=== PATIENT | female | born 1945 | race Caucasian/White ===

== ENCOUNTER 2022-04-10 11:17 | Emergency (ER) | payer MEDICARE ==
[2022-04-10] MEDS ORDERED: SODIUM CHLORIDE 0.9% 1,000 ML IV STA (11:34)
[2022-04-10] MEDS ORDERED: ACETAMINOPHEN TAB 500 MG TAB PO STA (11:44)
[2022-04-10 12:13] LABS: Basophils % (A) 1 %; Eosinophils # (A) 0.1 k/uL (0-0.7); Eosinophils % (A) 2 %; HCT 35.1 % (34.0-46.0); HGB 11.9 gm/dL (11.4-16.0); Lymphocytes # (A) 0.5 k/uL (1.0-4.8); Lymphocytes % (A) 8 %; MCH 27.9 pg (25.0-35.0); MCHC 33.9 g/dL (31.0-37.0); MCV 82.4 fL (80.0-100.0); Mean Platelet Volume 6.8; Monocytes # (A) 0.4 k/uL (0-1.0); Monocytes % (A) 6 %; Neutrophils # (A) 5.5 k/uL (1.3-7.7); Neutrophils % (A) 83 %; Platelet Count 231 k/uL (150-450); RBC 4.26 m/uL (3.80-5.40); WBC 6.6 k/uL (3.8-10.6)
--- NOTE | 2022-04-10 12:21 | ED ---
SOB HPI - General Chief Complaint: Shortness of Breath Stated Complaint: Covid+, SOB, fever Time Seen by Provider: 04/10/22 11:34 Source: patient Mode of arrival: ambulatory Limitations: no limitations - History of Present Illness Initial Comments: Patient is a 76-year-old female who presents to the emergency department for shortness of breath. Patient reports mild shortness of breath that began last night. She had 2 positive COVID-19 home tests. She reports dry cough, sore throat, and fever. No antipyretic use. No chest pain, nausea, vomiting. No history of tobacco use or COPD. - Related Data Previous Rx's Medication Instructions Recorded Benzocaine/Menthol [Cepacol Sore 1 each MM Q4-6H PRN #20 lozenge 04/10/22 Throat Lozenge] Allergies Allergy/AdvReac Type Severity Reaction Status Date / Time No Known Allergies Allergy Verified 04/10/22 11:32 Review of Systems ROS Statement: Those systems with pertinent positive or pertinent negative responses have been documented in the HPI. ROS Other: All systems not noted in ROS Statement are negative. Past Medical History Past Medical History: Renal Disease History of Any Multi-Drug Resistant Organisms: None Reported Past Surgical History: No Surgical Hx Reported Past Psychological History: No Psychological Hx Reported Smoking Status: Never smoker Past Alcohol Use History: Rare Past Drug Use History: None Reported General Exam Limitations: no limitations General appearance: alert, in no apparent distress Head exam: Present: atraumatic, normocephalic, normal inspection Eye exam: Present: normal appearance, PERRL, EOMI. Absent: scleral icterus, conjunctival injection, periorbital swelling ENT exam: Present: normal oropharynx Respiratory exam: Present: normal lung sounds bilaterally. Absent: respiratory distress, wheezes, rales, rhonchi, stridor Cardiovascular Exam: Present: regular rate, normal rhythm, normal heart sounds. Absent: systolic murmur, diastolic murmur, rubs, gallop, clicks GI/Abdominal exam: Present: soft, normal bowel sounds. Absent: distended, tenderness, guarding, rebound, rigid Extremities exam: Present: normal capillary refill. Absent: pedal edema Neurological exam: Present: alert, oriented X3, CN II-XII intact Psychiatric exam: Present: normal affect, normal mood Course Vital Signs 04/10/22 11:28 Temperature 100 F H Pulse Rate 100 Respiratory 18 Rate Blood Pressure 160/86 O2 Sat by Pulse 96 Oximetry Medical Decision Making - Medical Decision Making Was pt. sent in by a medical professional or institution (, JEROME, NURSE PRACTITIONER MANAGER, urgent care, hospital, or long-term...) When possible be specific @ -[No] Did you speak to anyone other than the patient for history (EMS, parent, family, police, friend...)? What history was obtained from this source @ -[No] Did you review nursing and triage notes (agree or disagree)? Why? @ -[I reviewed and agree with nursing and triage notes] Were old charts reviewed (outside hosp., previous admission, EMS record, old EKG, old radiological studies, urgent care reports/EKG's, long-term records)? Report findings @ -[No old charts were reviewed] Differential Diagnosis (chest pain, altered mental status, abdominal pain women, abdominal pain men, vaginal bleeding, weakness, fever, dyspnea, syncope, headache, dizziness, GI bleed, back pain, seizure, CVA, palpatations, mental health)? @ -COVID-19, pneumonia, acute bronchitis EKG interpreted by me (3pts min.). @ -EKG shows sinus rhythm with no new ST segment or T-wave changes. Ventr icular rate 79, TX interval 174, QRS duration 87, QTC 397 X-rays interpreted by me (1pt min.). @ -[None done] CT interpreted by me (1pt min.). @ -[None done] U/S interpreted by me (1pt. min.). @ -[None done] What testing was considered but not performed or refused? (CT, X-rays, U/S, labs)? Why? @ -[None] What meds were considered but not given or refused? Why? @ -[None] Did you discuss the management of the patient with other professionals (professionals i.e. , JEROME, NURSE PRACTITIONER MANAGER, lab, RT, psych nurse, social media marketing analyst, core extruder, teacher, gunnery/ordnance officer, senior case manager)? Give summary @ -[No] Was smoking cessation discussed for >3mins.? @ -[No] Was critical care preformed (if so, how long)? @ -[No] Were there social determinants of health that impacted care today? How? (Homelessness, low income, unemployed, alcoholism, drug addiction, transportation, low edu. Level, literacy, decrease access to med. care, fpc, rehab)? @ -[No] Was there de-escalation of care discussed even if they declined (Discuss DNR or withdrawal of care, Hospice)? DNR status @ -[No] What co-morbidities impacted this encounter? (DM, HTN, Smoking, COPD, CAD, Cancer, CVA, ARF, Chemo, Hep., AIDS, mental health diagnosis, sleep apnea, morbid obesity)? @ -[None] Was patient admitted / discharged? Hospital course, mention meds given and route, prescriptions, significant lab abnormalities, going to OR and other pertinent info. @ -Discharged. Patient well-appearing, no evidence of respiratory distress. No hypoxia, no abnormal lung sounds. COVID-19 is detected. No leukocytosis. Chest x-ray negative for acute process. Patient had mild fever treated with Tylenol. Symptoms consistent with upper respiratory infection. She is in stable medical condition for discharge with return parameters Undiagnosed new problem with uncertain prognosis? @ -[No] Drug Therapy requiring intensive monitoring for toxicity (Heparin, Nitro, Insulin, Cardizem)? @ -[No] Were any procedures done? @ -[No] Diagnosis/symptom? @ -COVID-19 Acute, or Chronic, or Acute on Chronic? @ -Acute Uncomplicated (without systemic symptoms) or Complicated (systemic symptoms)? @ -Complicated Side effects of treatment? @ -[No] Exacerbation, Progression, or Severe Exacerbation? @ -[No] Poses a threat to life or bodily function? How? (Chest pain, [place], [place], pneumonia, PE, COPD, DKA, ARF, appy, cholecystitis, CVA, Diverticulitis, Homicidal, Suicidal, threat to staff... and all critical care pts) @ -[No] Dr. Calderon is my attending - Lab Data Result diagrams: 04/10/22 11:56 04/10/22 11:56 Lab Results 04/10/22 04/10/22 04/10/22 Range/Units 11:56 11:56 11:56 WBC 6.6 (3.8-10.6) k/uL RBC 4.26 (3.80-5.40) m/uL Hgb 11.9 (11.4-16.0) gm/dL Hct 35.1 (34.0-46.0) % MCV 82.4 (80.0-100.0) fL MCH 27.9 (25.0-35.0) pg MCHC 33.9 (31.0-37.0) g/dL RDW 14.0 (11.5-15.5) % Plt Count 231 (150-450) k/uL MPV 6.8 Neutrophils % 83 % Lymphocytes % 8 % Monocytes % 6 % Eosinophils % 2 % Basophils % 1 % Neutrophils # 5.5 (1.3-7.7) k/uL Lymphocytes # 0.5 L (1.0-4.8) k/uL Monocytes # 0.4 (0-1.0) k/uL Eosinophils # 0.1 (0-0.7) k/uL Basophils # 0.0 (0-0.2) k/uL PT 10.2 (9.0-12.0) sec INR 1.0 (<1.2) APTT 25.2 (22.0-30.0) sec Sodium (137-145) mmol/L Potassium (3.5-5.1) mmol/L Chloride (98-107) mmol/L Carbon Dioxide (22-30) mmol/L Anion Gap mmol/L BUN (7-17) mg/dL Creatinine (0.52-1.04) mg/dL Est GFR (CKD-EPI)AfAm (>60 ml/min/1.73 sqM) Est GFR (CKD-EPI)NonAf (>60 ml/min/1.73 sqM) Glucose (74-99) mg/dL Plasma Lactic Acid Peter (0.7-2.0) mmol/L Calcium (8.4-10.2) mg/dL Total Bilirubin (0.2-1.3) mg/dL AST (14-36) U/L ALT (4-34) U/L Alkaline Phosphatase (38-126) U/L Troponin I (0.000-0.034) ng/mL Total Protein (6.3-8.2) g/dL Albumin (3.5-5.0) g/dL Urine Color Yellow Urine Appearance Clear (Clear) Urine pH 5.5 (5.0-8.0) Ur Specific Farley 1.019 (1.001-1.035) Urine Protein Trace H (Negative) Urine Glucose (UA) Negative (Negative) Urine Ketones Negative (Negative) Urine Blood Trace H (Negative) Urine Nitrite Negative (Negative) Urine Bilirubin Negative (Negative) Urine Urobilinogen <2.0 (<2.0) mg/dL Ur Leukocyte Esterase Negative (Negative) Urine RBC <1 (0-5) /hpf Urine WBC 1 (0-5) /hpf Ur Squamous Epith Cells 4 (0-4) /hpf Urine Bacteria Rare H (None) /hpf Hyaline Casts 1 (0-2) /lpf Urine Mucus Few H (None) /hpf Influenza Type A (PCR) (Not Detectd) Influenza Type B (PCR) (Not Detectd) RSV (PCR) (Not Detectd) SARS-CoV-2 (PCR) (Not Detectd) 04/10/22 04/10/22 04/10/22 Range/Units 11:56 11:56 11:56 WBC (3.8-10.6) k/uL RBC (3.80-5.40) m/uL Hgb (11.4-16.0) gm/dL Hct (34.0-46.0) % MCV (80.0-100.0) fL MCH (25.0-35.0) pg MCHC (31.0-37.0) g/dL RDW (11.5-15.5) % Plt Count (150-450) k/uL MPV Neutrophils % % Lymphocytes % % Monocytes % % Eosinophils % % Basophils % % Neutrophils # (1.3-7.7) k/uL Lymphocytes # (1.0-4.8) k/uL Monocytes # (0-1.0) k/uL Eosinophils # (0-0.7) k/uL Basophils # (0-0.2) k/uL PT (9.0-12.0) sec INR (<1.2) APTT (22.0-30.0) sec Sodium 138 (137-145) mmol/L Potassium 4.1 (3.5-5.1) mmol/L Chloride 104 (98-107) mmol/L Carbon Dioxide 29 (22-30) mmol/L Anion Gap 5 mmol/L BUN 15 (7-17) mg/dL Creatinine 1.05 H (0.52-1.04) mg/dL Est GFR (CKD-EPI)AfAm 60 (>60 ml/min/1.73 sqM) Est GFR (CKD-EPI)NonAf 52 (>60 ml/min/1.73 sqM) Glucose 120 H (74-99) mg/dL Plasma Lactic Acid Peter 1.6 (0.7-2.0) mmol/L Calcium 8.8 (8.4-10.2) mg/dL Total Bilirubin 0.7 (0.2-1.3) mg/dL AST 20 (14-36) U/L ALT 15 (4-34) U/L Alkaline Phosphatase 85 (38-126) U/L Troponin I <0.012 (0.000-0.034) ng/mL Total Protein 6.5 (6.3-8.2) g/dL Albumin 3.8 (3.5-5.0) g/dL Urine Color Urine Appearance (Clear) Urine pH (5.0-8.0) Ur Specific Farley (1.001-1.035) Urine Protein (Negative) Urine Glucose (UA) (Negative) Urine Ketones (Negative) Urine Blood (Negative) Urine Nitrite (Negative) Urine Bilirubin (Negative) Urine Urobilinogen (<2.0) mg/dL Ur Leukocyte Esterase (Negative) Urine RBC (0-5) /hpf Urine WBC (0-5) /hpf Ur Squamous Epith Cells (0-4) /hpf Urine Bacteria (None) /hpf Hyaline Casts (0-2) /lpf Urine Mucus (None) /hpf Influenza Type A (PCR) (Not Detectd) Influenza Type B (PCR) (Not Detectd) RSV (PCR) (Not Detectd) SARS-CoV-2 (PCR) (Not Detectd) 04/10/22 Range/Units 11:56 WBC (3.8-10.6) k/uL RBC (3.80-5.40) m/uL Hgb (11.4-16.0) gm/dL Hct (34.0-46.0) % MCV (80.0-100.0) fL MCH (25.0-35.0) pg MCHC (31.0-37.0) g/dL RDW (11.5-15.5) % Plt Count (150-450) k/uL MPV Neutrophils % % Lymphocytes % % Monocytes % % Eosinophils % % Basophils % % Neutrophils # (1.3-7.7) k/uL Lymphocytes # (1.0-4.8) k/uL Monocytes # (0-1.0) k/uL Eosinophils # (0-0.7) k/uL Basophils # (0-0.2) k/uL PT (9.0-12.0) sec INR (<1.2) APTT (22.0-30.0) sec Sodium (137-145) mmol/L Potassium (3.5-5.1) mmol/L Chloride (98-107) mmol/L Carbon Dioxide (22-30) mmol/L Anion Gap mmol/L BUN (7-17) mg/dL Creatinine (0.52-1.04) mg/dL Est GFR (CKD-EPI)AfAm (>60 ml/min/1.73 sqM) Est GFR (CKD-EPI)NonAf (>60 ml/min/1.73 sqM) Glucose (74-99) mg/dL Plasma Lactic Acid Peter (0.7-2.0) mmol/L Calcium (8.4-10.2) mg/dL Total Bilirubin (0.2-1.3) mg/dL AST (14-36) U/L ALT (4-34) U/L Alkaline Phosphatase (38-126) U/L Troponin I (0.000-0.034) ng/mL Total Protein (6.3-8.2) g/dL Albumin (3.5-5.0) g/dL Urine Color Urine Appearance (Clear) Urine pH (5.0-8.0) Ur Specific Farley (1.001-1.035) Urine Protein (Negative) Urine Glucose (UA) (Negative) Urine Ketones (Negative) Urine Blood (Negative) Urine Nitrite (Negative) Urine Bilirubin (Negative) Urine Urobilinogen (<2.0) mg/dL Ur Leukocyte Esterase (Negative) Urine RBC (0-5) /hpf Urine WBC (0-5) /hpf Ur Squamous Epith Cells (0-4) /hpf Urine Bacteria (None) /hpf Hyaline Casts (0-2) /lpf Urine Mucus (None) /hpf Influenza Type A (PCR) Not Detected (Not Detectd) Influenza Type B (PCR) Not Detected (Not Detectd) RSV (PCR) Not Detected (Not Detectd) SARS-CoV-2 (PCR) Detected A (Not Detectd) Disposition Clinical Impression: Fever, Shortness of breath Disposition: HOME SELF-CARE Condition: Good Instructions (If sedation given, give patient instructions): COVID-19 (Coronavirus Disease 2019) (ED) Additional Instructions: Take Tylenol for fever every 4-6 hours. Next dose will be at 4:15. Use prescribed lozenges for throat pain. Follow-up with primary care provider in one to 2 days. Return to the emergency department if you experience new, concerning, or worsening symptoms. Prescriptions: Benzocaine/Menthol [Cepacol Sore Throat Lozenge] 1 each MM Q4-6H PRN #20 lozenge PRN Reason: Pain Is patient prescribed a controlled substance at d/c from ED?: No Referrals: Irvin Nichols MD [Primary Care Provider] - 1-2 days
[2022-04-10 12:24] LABS: Albumin 3.8 g/dL (3.5-5.0); Calcium 8.8 mg/dL (8.4-10.2); Partial Thromboplastin Time 25.2 sec (22.0-30.0); Potassium 4.1 mmol/L (3.5-5.1); Prothrombin Time 10.2 sec (9.0-12.0); Total Bilirubin 0.7 mg/dL (0.2-1.3); Total Protein 6.5 g/dL (6.3-8.2)
[2022-04-10 12:28] LABS: Appearance,Urine Clear (Clear); Bacteria,Urine Rare /hpf; Bilirubin,Urine Negative (Negative); Blood,Urine Trace (Negative); Color,Urine Yellow; Glucose,Urine (UA) Negative (Negative); Hyaline Casts,Urine 1 /lpf (0-2); Ketones,Urine Negative (Negative); Leukocyte Esterase,Urine Negative (Negative); Mucus,Urine Few /hpf; Nitrite,Urine Negative (Negative); PH, Urine 5.5 (5.0-8.0); Protein,Urine Trace (Negative); RBC,Urine <1 /hpf (0-5); Specific Gravity,Urine 1.019 (1.001-1.035); Squamous Epithelial Cell,Urine 4 /hpf (0-4); Urobilinogen,Urine <2.0 mg/dL (<2.0); WBC,Urine 1 /hpf (0-5)
--- NOTE | 2022-04-10 12:42 | XR ---
EXAMINATION TYPE: XR chest 2V DATE OF EXAM: 04/10/2022 COMPARISON: NONE HISTORY: Difficulty breathing TECHNIQUE: Frontal and lateral views of the chest are obtained. FINDINGS: The lungs are clear of consolidative, interstitial or masslike opacity. The heart, pulmonary vasculature, mediastinum and hilum appear normal. There is no pleural effusion, pleural thickening or pneumothorax. There is eventration anterior right hemidiaphragm. The osseous structures are intact. IMPRESSION: No acute cardiopulmonary disease.
[2022-04-10 13:56] VITALS: BP 170/78; PULSE 76; RESP 22; TEMP 100.1
== END 2022-04-10 14:03 | disposition home or self-care (01) ==
LOC: EC 11:17
DX: U07.1 COVID-19 (principal)
CPT/HCPCS: 36415; 71046; 80053; 81001; 83605; 84484; 85025; 85610; 85730; 87636; 93005; 96360; 99285

== ENCOUNTER 2022-04-11 16:35 | Emergency (ER) | payer MEDICARE ==
--- NOTE | 2022-04-11 16:38 | ED ---
General Adult HPI <Dianna Charles - Last Filed: 04/11/22 16:37> - General Source: patient, RN notes reviewed Mode of arrival: ambulatory Limitations: no limitations <Melvin Clark - Last Filed: 04/11/22 19:42> <Shiraz Pradhan - Last Filed: 04/11/22 23:42> - General Stated complaint: COVID+, sob Time Seen by Provider: 04/11/22 17:10 - History of Present Illness Initial comments: 76-year-old female presents to the emergency department with a chief complaint of shortness breath times yesterday. Patient was here yesterday for COVID and report symptoms are worse (Dianna Charles) Patient is a 76-year-old female presenting with chief complaint of shortness of breath. Patient was seen here yesterday for the same symptoms and was diagnosed with Covid. Patient states that she is continuing to feel short of breath. Patient has a baseline benign tremor noted while obtaining history. She denies any chest pain, palpitations, abdominal pain, nausea, vomiting, dizziness, headache, neck pain or stiffness, difficulty swallowing. No hemoptysis. (Shiraz Pradhan) - Related Data Home Medications Medication Instructions Recorded Confirmed Ergocalciferol [Vitamin D2 (1250 1,250 mcg PO WILLIAM 04/10/22 04/10/22 Mcg = 40624 Iu)] Levothyroxine Sodium [Synthroid] 100 mcg PO DAILY 04/10/22 04/10/22 PARoxetine HCL [Paxil] 20 mg PO BID 04/10/22 04/10/22 lisinopriL [Prinivil] 10 mg PO DAILY 04/10/22 04/10/22 Previous Rx's Medication Instructions Recorded Benzocaine/Menthol [Cepacol Sore 1 each MM Q4-6H PRN #20 lozenge 04/10/22 Throat Lozenge] Allergies Allergy/AdvReac Type Severity Reaction Status Date / Time No Known Allergies Allergy Verified 04/11/22 17:19 Review of Systems ROS Other: All systems not noted in ROS Statement are negative. <Dianna Charles - Last Filed: 04/11/22 16:37> ROS Other: All systems not noted in ROS Statement are negative. <Melvin Clark - Last Filed: 04/11/22 19:42> ROS Other: All systems not noted in ROS Statement are negative. <Shiraz Pradhan - Last Filed: 04/11/22 23:42> ROS Statement: Those systems with pertinent positive or pertinent negative responses have been documented in the HPI. Past Medical History Past Medical History: Renal Disease History of Any Multi-Drug Resistant Organisms: None Reported Past Surgical History: No Surgical Hx Reported Past Psychological History: No Psychological Hx Reported Smoking Status: Never smoker Past Alcohol Use History: Rare Past Drug Use History: None Reported <Dianna Charles - Last Filed: 04/11/22 16:37> General Exam Limitations: no limitations General appearance: alert, in no apparent distress Head exam: Present: atraumatic, normocephalic, normal inspection Eye exam: Present: normal appearance Neck exam: Present: normal inspection, full ROM Respiratory exam: Present: normal lung sounds bilaterally. Absent: respiratory distress, wheezes, rales, rhonchi, stridor Cardiovascular Exam: Present: regular rate, normal rhythm, normal heart sounds. Absent: systolic murmur, diastolic murmur, rubs, gallop, clicks Neurological exam: Present: alert, oriented X3, CN II-XII intact Psychiatric exam: Present: normal affect, normal mood Skin exam: Present: warm, dry, intact, normal color. Absent: rash <Shiraz Pradhan - Last Filed: 04/11/22 23:42> Course Vital Signs 04/11/22 04/11/22 17:16 21:41 Temperature 98.9 F Pulse Rate 83 79 Respiratory 22 18 Rate Blood Pressure 177/105 188/99 O2 Sat by Pulse 97 97 Oximetry Medical Decision Making <Shiraz Pradhan - Last Filed: 04/11/22 23:42> - Medical Decision Making Was pt. sent in by a medical professional or institution (, PA, MARINE ELECTRICIAN APPRENTICE, urgent care, hospital, or snf...) When possible be specific @ -[No] Did you speak to anyone other than the patient for history (EMS, parent, family, police, friend...)? What history was obtained from this source @ -[No] Did you review nursing and triage notes (agree or disagree)? Why? @ -[I reviewed and agree with nursing and triage notes] Were old charts reviewed (outside hosp., previous admission, EMS record, old EKG, old radiological studies, urgent care reports/EKG's, snf records)? Report findings @ -Yesterday's visit is reviewed Differential Diagnosis (chest pain, altered mental status, abdominal pain women, abdominal pain men, vaginal bleeding, weakness, fever, dyspnea, syncope, headache, dizziness, GI bleed, back pain, seizure, CVA, palpatations, mental health)? @ -Differential includes Covid, pneumonia, bronchitis, this is not an all inclusive list EKG interpreted by me (3pts min.). @ -[As above] X-rays interpreted by me (1pt min.). @ -Chest x-ray shows no acute process CT interpreted by me (1pt min.). @ -[None done] U/S interpreted by me (1pt. min.). @ -[None done] What testing was considered but not performed or refused? (CT, X-rays, U/S, labs)? Why? @ -[None] What meds were considered but not given or refused? Why? @ -[None] Did you discuss the management of the patient with other professionals (professionals i.e. , PA, MARINE ELECTRICIAN APPRENTICE, lab, RT, psych nurse, social work supervisor, forming roll operator heavy duty, teacher, special skills officer, watch case polisher)? Give summary @ -[No] Was smoking cessation discussed for >3mins.? @ -[No] Was critical care preformed (if so, how long)? @ -[No] Were there social determinants of health that impacted care today? How? (Homelessness, low income, unemployed, alcoholism, drug addiction, transportation, low edu. Level, literacy, decrease access to med. care, long term, rehab)? @ -[No] Was there de-escalation of care discussed even if they declined (Discuss DNR or withdrawal of care, Hospice)? DNR status @ -[No] What co-morbidities impacted this encounter? (DM, HTN, Smoking, COPD, CAD, Cancer, CVA, ARF, Chemo, Hep., AIDS, mental health diagnosis, sleep apnea, morbid obesity)? @ -[None] Was patient admitted / discharged? Hospital course, mention meds given and route, prescriptions, significant lab abnormalities, going to OR and other pertinent info. @ -Patient is a 76-year-old female who was diagnosed with Covid yesterday in our ER presenting with chief complaint of shortness of breath. Patient states that she is continuing to experience symptoms. Vital signs are stable, patient is 97% on room air. No wheezes or rales heard on auscultation. Patient is not tachycardic. Chest x-ray shows no acute process. Symptoms are likely due to Covid diagnosis. Patient is educated on Covid and supportive treatment at home. Follow-up with PCP. Report back to ER with any new or worsening symptoms. Discussed return parameters and answered all questions. Patient conveyed verbal understanding and agreed to the plan. I discussed this case in detail with my attending Dr. Arredondo Undiagnosed new problem with uncertain prognosis? @ -[No] Drug Therapy requiring intensive monitoring for toxicity (Heparin, Nitro, Insulin, Cardizem)? @ -[No] Were any procedures done? @ -[No] Diagnosis/symptom? @ -Covid Acute, or Chronic, or Acute on Chronic? @ -Acute Uncomplicated (without systemic symptoms) or Complicated (systemic symptoms)? @ -Uncomplicated Side effects of treatment? @ -[No] Exacerbation, Progression, or Severe Exacerbation? @ -[No] Poses a threat to life or bodily function? How? (Chest pain, [place], [place], pneumonia, PE, COPD, DKA, ARF, appy, cholecystitis, CVA, Diverticulitis, Homicidal, Suicidal, threat to staff... and all critical care pts) @ -Potentially, monitor for worsening symptoms (Shiraz Pradhan) Disposition <Dianna Charles - Last Filed: 04/11/22 16:37> <Melvin Clark - Last Filed: 04/11/22 19:42> Is patient prescribed a controlled substance at d/c from ED?: No Time of Disposition: 21:27 <Shiraz Pradhan - Last Filed: 04/11/22 23:42> Clinical Impression: COVID Disposition: HOME SELF-CARE Condition: Good Instructions (If sedation given, give patient instructions): COVID-19 (Coronavirus Disease 2019) (ED) Additional Instructions: Follow-up with PCP. Report back to ER with any new or worsening symptoms. You must quarantine at home for 5 days starting from the first day of symptoms. This is then followed by 5 days of strict mask usage while in public. Take Motrin and Tylenol as needed for pain and fever control. Stay well hydrated and get plenty of rest. Referrals: Irvin Nichols MD [Primary Care Provider] - 1-2 days
[2022-04-11 17:19] VITALS: TEMP 98.9
--- NOTE | 2022-04-11 20:25 | XR ---
EXAMINATION TYPE: XR chest 2V DATE OF EXAM: 04/11/2022 7:29 PM COMPARISON: Chest radiographs from 04/10/2022 TECHNIQUE: XR chest 2V Frontal and lateral views of the chest. CLINICAL INDICATION:Female, 76 years old with history of covid; FINDINGS: Lungs/Pleura: There is flattening of the diaphragm with increased lucency of the lungs. No evidence o f pneumothorax, pleural effusion or focal consolidation. Pulmonary vascularity: Unremarkable. Heart/mediastinum: Cardiomediastinal silhouette is unremarkable. Musculoskeletal: No acute osseous pathology. IMPRESSION: 1. No acute cardiopulmonary disease process. 2. COPD changes.
[2022-04-11] MEDS ORDERED: ACETAMINOPHEN TAB 325 MG TAB PO STA (21:24)
[2022-04-11 21:45] VITALS: BP 188/99; PULSE 79; RESP 18
== END 2022-04-11 22:16 | disposition home or self-care (01) ==
LOC: EC 16:35
DX: U07.1 COVID-19 (principal)
CPT/HCPCS: 71046; 99285

== ENCOUNTER 2022-08-18 15:12 | Emergency (ER) | payer MEDICARE, OTHER ==
[2022-08-18 15:26] VITALS: TEMP 99
[2022-08-18] MEDS ORDERED: IPRATROPIUM-ALBUTEROL 3 ML NEB INHALATION STA (15:44)
--- NOTE | 2022-08-18 15:44 | ED ---
SOB HPI - General Chief Complaint: Shortness of Breath Stated Complaint: SOB Time Seen by Provider: 08/18/22 15:43 Source: patient, RN notes reviewed, old records reviewed Mode of arrival: wheelchair Limitations: no limitations - History of Present Illness Initial Comments: This is a 76-year-old female DF for evaluation patient with severe current anxie ty on initial evaluation the patient room. Patient states she does not want to stay in hospital, she has been at the hospital for too long at this point. Patient is very anxious in the ER denying chest pain for complaining of some shortness breath that is resolved she states initially her [id number] treatments were working but they do appear to be working currently MD Complaint: "asthma attack", anxiety -: days(s) Severity: moderate Severity scale (1-10): 3 Consistency: constant, now resolved Improves With: bronchodilators Worsens With: nothing Known History Of: COPD, asthma Context: recent URI Associated Symptoms: denies other symptoms - Related Data Home Medications Medication Instructions Recorded Confirmed Ergocalciferol [Vitamin D2 (1250 1,250 mcg PO WILLIAM 04/10/22 04/10/22 Mcg = 12555 Iu)] Levothyroxine Sodium [Synthroid] 100 mcg PO DAILY 04/10/22 04/10/22 PARoxetine HCL [Paxil] 20 mg PO BID 04/10/22 04/10/22 lisinopriL [Prinivil] 10 mg PO DAILY 04/10/22 04/10/22 Previous Rx's Medication Instructions Recorded Benzocaine/Menthol [Cepacol Sore 1 each MM Q4-6H PRN #20 lozenge 04/10/22 Throat Lozenge] Allergies Allergy/AdvReac Type Severity Reaction Status Date / Time No Known Allergies Allergy Verified 08/18/22 15:26 Review of Systems ROS Statement: Those systems with pertinent positive or pertinent negative responses have been documented in the HPI. ROS Other: All systems not noted in ROS Statement are negative. Past Medical History Past Medical History: Renal Disease Additional Past Medical History / Comment(s): Covid History of Any Multi-Drug Resistant Organisms: None Reported Past Surgical History: No Surgical Hx Reported Past Psychological History: No Psychological Hx Reported Smoking Status: Never smoker Past Alcohol Use History: Rare Past Drug Use History: None Reported General Exam Limitations: no limitations General appearance: alert, in no apparent distress, anxious Head exam: Present: atraumatic, normocephalic, normal inspection Eye exam: Present: normal appearance, PERRL, EOMI. Absent: scleral icterus, conjunctival injection, periorbital swelling ENT exam: Present: normal exam, mucous membranes moist Neck exam: Present: normal inspection. Absent: tenderness, meningismus, lymphadenopathy Respiratory exam: Present: normal lung sounds bilaterally. Absent: respiratory distress, wheezes, rales, rhonchi, stridor Cardiovascular Exam: Present: regular rate, normal rhythm, normal heart sounds. Absent: systolic murmur, diastolic murmur, rubs, gallop, clicks GI/Abdominal exam: Present: soft, normal bowel sounds. Absent: distended, tenderness, guarding, rebound, rigid Extremities exam: Present: normal inspection, full ROM, normal capillary refill. Absent: tenderness, pedal edema, joint swelling, calf tenderness Back exam: Present: normal inspection Neurological exam: Present: alert, oriented X3, CN II-XII intact Psychiatric exam: Present: normal affect, normal mood Skin exam: Present: warm, dry, intact, normal color. Absent: rash Course Vital Signs 08/18/22 08/18/22 15:23 15:56 Temperature 99.0 F Pulse Rate 64 60 Respiratory 22 18 Rate Blood Pressure 168/77 163/92 O2 Sat by Pulse 100 98 Oximetry - Reevaluation(s) Reevaluation #1: 08/18/22 17:34 Medical records reviewed Reevaluation #2: 08/18/22 17:34 Patient prefers discharge home states she's getting more anxious longer she is in the hospital, refusing any anxiety medications Reevaluation #3: 08/18/22 17:34 Patient informed results questions answered Reevaluation #4: 08/18/22 17:34 Was pt. sent in by a medical professional or institution? @ -no Did you speak to anyone other than the patient for history? @ -no Did you review nursing and triage notes? @ -agree Were old charts reviewed? @ -no Differential Diagnosis? @ -prior EKG interpreted by me (3pts min.)? @ -yes X-rays interpreted by me (1pt min.)? @ -yes CT interpreted by me (1pt min.)? @ -no U/S interpreted by me (1pt. min.)? @ -no What testing was considered but not performed? (CT, X-rays, U/S, labs)? Why? @ -no What meds were considered but not given? Why? @ -no Did you discuss the management of the patient with other professionals? @ -no Did you reconcile home meds? @ -no Was smoking cessation discussed for >3mins.? @ -no Was critical care preformed (if so, how long)? @ -no Were there social determinants of health that impacted care today? How? (Homelessness, low income, unemployed, alcoholism, drug addiction, transportation, low edu. Level, literacy, decrease access to med. care, prison, rehab)? @ -no Was there de-escalation of care discussed even if they declined? (Discuss DNR or withdrawal of care, Hospice)? @ -no What co-morbidities impacted this encounter? (DM, HTN, Smoking, COPD, CAD, Cancer, CVA, Hep., AIDS, mental health diagnosis, sleep apnea, morbid obesity)? @ -none Was patient admitted / discharged? @ -76 female to the emergency department for evaluation of anxiety attack. Patient is having some mild shortness breath or nasal feeling improved now x- rays negative lab values are normal patient can be discharged home Discharged Undiagnosed new problem with uncertain prognosis? @ -no Drug Therapy requiring intensive monitoring for toxicity (Heparin, Nitro, Insulin, Cardizem)? @ -no Were any procedures done? @ -no Diagnosis/symptom? @ -Anxiety with asthma exacerbation Acute, or Chronic, or Acute on Chronic? @ -no Uncomplicated (without systemic symptoms) or Complicated (systemic symptoms)? @ -uncomplicated Side effects of treatment? @ -no Exacerbation, Progression, or Severe Exacerbation] @ -no Poses a threat to life or bodily function? @ -no Reevaluation #5: 08/18/22 17:34 Differential Dyspnea: Coronary syndrome, arrhythmia, tamponade, asthma, COPD, pulmonary embolism, pneumonia, pneumothorax, pulmonary effusion, anaphylaxis, diabetic ketoacidosis, flailed chest, pulmonary contusion, diaphragmatic rupture, anemia, neuromuscular, this is not meant to be an all-inclusive list. Medical Decision Making - Medical Decision Making 76 female to the emergency department for evaluation of shortness of breath more significant anxiety oxygen also normal patient's no distress and can be discharged home - Lab Data Result diagrams: 08/18/22 15:54 08/18/22 15:54 Lab Results 08/18/22 08/18/22 08/18/22 Range/Units 15:54 15:54 15:54 WBC 7.7 (3.8-10.6) k/uL RBC 4.60 (3.80-5.40) m/uL Hgb 13.0 (11.4-16.0) gm/dL Hct 38.3 (34.0-46.0) % MCV 83.3 (80.0-100.0) fL MCH 28.2 (25.0-35.0) pg MCHC 33.9 (31.0-37.0) g/dL RDW 14.2 (11.5-15.5) % Plt Count 252 (150-450) k/uL MPV 7.2 Neutrophils % 70 % Lymphocytes % 20 % Monocytes % 6 % Eosinophils % 2 % Basophils % 0 % Neutrophils # 5.4 (1.3-7.7) k/uL Lymphocytes # 1.6 (1.0-4.8) k/uL Monocytes # 0.5 (0-1.0) k/uL Eosinophils # 0.2 (0-0.7) k/uL Basophils # 0.0 (0-0.2) k/uL PT 10.2 (9.0-12.0) sec INR 1.0 (<1.2) APTT 22.7 (22.0-30.0) sec D-Dimer 0.59 (<0.60) mg/L FEU Sodium 139 (137-145) mmol/L Potassium 4.0 (3.5-5.1) mmol/L Chloride 103 (98-107) mmol/L Carbon Dioxide 24 (22-30) mmol/L Anion Gap 12 mmol/L BUN 35 H (7-17) mg/dL Creatinine 1.31 H (0.52-1.04) mg/dL Est GFR (CKD-EPI)AfAm 46 (>60 ml/min/1.73 sqM) Est GFR (CKD-EPI)NonAf 40 (>60 ml/min/1.73 sqM) Glucose 122 H (74-99) mg/dL Calcium 9.6 (8.4-10.2) mg/dL Magnesium 2.1 (1.6-2.3) mg/dL Total Bilirubin 0.7 (0.2-1.3) mg/dL AST 21 (14-36) U/L ALT 15 (4-34) U/L Alkaline Phosphatase 85 (38-126) U/L Troponin I (0.000-0.034) ng/mL NT-Pro-B Natriuret Pep pg/mL Total Protein 7.2 (6.3-8.2) g/dL Albumin 4.3 (3.5-5.0) g/dL 08/18/22 08/18/22 Range/Units 15:54 15:54 WBC (3.8-10.6) k/uL RBC (3.80-5.40) m/uL Hgb (11.4-16.0) gm/dL Hct (34.0-46.0) % MCV (80.0-100.0) fL MCH (25.0-35.0) pg MCHC (31.0-37.0) g/dL RDW (11.5-15.5) % Plt Count (150-450) k/uL MPV Neutrophils % % Lymphocytes % % Monocytes % % Eosinophils % % Basophils % % Neutrophils # (1.3-7.7) k/uL Lymphocytes # (1.0-4.8) k/uL Monocytes # (0-1.0) k/uL Eosinophils # (0-0.7) k/uL Basophils # (0-0.2) k/uL PT (9.0-12.0) sec INR (<1.2) APTT (22.0-30.0) sec D-Dimer (<0.60) mg/L FEU Sodium (137-145) mmol/L Potassium (3.5-5.1) mmol/L Chloride (98-107) mmol/L Carbon Dioxide (22-30) mmol/L Anion Gap mmol/L BUN (7-17) mg/dL Creatinine (0.52-1.04) mg/dL Est GFR (CKD-EPI)AfAm (>60 ml/min/1.73 sqM) Est GFR (CKD-EPI)NonAf (>60 ml/min/1.73 sqM) Glucose (74-99) mg/dL Calcium (8.4-10.2) mg/dL Magnesium (1.6-2.3) mg/dL Total Bilirubin (0.2-1.3) mg/dL AST (14-36) U/L ALT (4-34) U/L Alkaline Phosphatase (38-126) U/L Troponin I <0.012 (0.000-0.034) ng/mL NT-Pro-B Natriuret Pep 257 pg/mL Total Protein (6.3-8.2) g/dL Albumin (3.5-5.0) g/dL - EKG Data -: EKG Interpreted by Me (EKG is sinus bradycardia 58 SC 174 QRS 87 QTc 405) - Radiology Data Radiology results: report reviewed (Chest x-rays negative for acute disease), image reviewed Disposition Clinical Impression: Anxiety, Acute exacerbation of chronic obstructive pulmonary disease Disposition: HOME SELF-CARE Condition: Fair Instructions (If sedation given, give patient instructions): Asthma (ED), Acute Bronchitis (ED), Anxiety (ED) Is patient prescribed a controlled substance at d/c from ED?: No Referrals: Irvin Nichols MD [Primary Care Provider] - 1-2 days Time of Disposition: 17:30
[2022-08-18 16:04] VITALS: BP 163/92; PULSE 60; RESP 18
--- NOTE | 2022-08-18 16:33 | XR ---
EXAMINATION TYPE: XR chest 1V portable DATE OF EXAM: 08/18/2022 Comparison: 04/11/2022 Clinical History: 76 year-old female shortness of breath Findings: Heart upper limits of normal size. Mild hyperinflation. Eventration anterior right hemidiaphragm. No consolidation or pleural effusion seen. Impression: Mild hyperinflation may relate to depth of inspiration or underlying emphysema. Clinically correlate. Otherwise, no acute cardiopulmonary process.
[2022-08-18 16:45] LABS: Basophils % (A) 0 %; Eosinophils # (A) 0.2 k/uL (0-0.7); Eosinophils % (A) 2 %; HCT 38.3 % (34.0-46.0); Lymphocytes # (A) 1.6 k/uL (1.0-4.8); Lymphocytes % (A) 20 %; MCH 28.2 pg (25.0-35.0); MCHC 33.9 g/dL (31.0-37.0); MCV 83.3 fL (80.0-100.0); Mean Platelet Volume 7.2; Monocytes # (A) 0.5 k/uL (0-1.0); Monocytes % (A) 6 %; Neutrophils # (A) 5.4 k/uL (1.3-7.7); Neutrophils % (A) 70 %; Platelet Count 252 k/uL (150-450); RDW 14.2 % (11.5-15.5); WBC 7.7 k/uL (3.8-10.6)
[2022-08-18 16:56] LABS: Albumin 4.3 g/dL (3.5-5.0); Calcium 9.6 mg/dL (8.4-10.2); Magnesium 2.1 mg/dL (1.6-2.3); Total Bilirubin 0.7 mg/dL (0.2-1.3); Total Protein 7.2 g/dL (6.3-8.2)
[2022-08-18 17:32] LABS: Partial Thromboplastin Time 22.7 sec (22.0-30.0); Prothrombin Time 10.2 sec (9.0-12.0)
== END 2022-08-18 17:39 | disposition home or self-care (01) ==
LOC: EC 15:12
DX: J44.1 Chronic obstructive pulmonary disease with (acute) exacerbation (principal); F41.9 Anxiety disorder, unspecified; Z86.16 Personal history of COVID-19
CPT/HCPCS: 36415; 71045; 80053; 83735; 83880; 84484; 85025; 85379; 85610; 85730; 99285